=== PATIENT | female | born 1955 | race Caucasian/White ===

== ENCOUNTER 2023-04-13 10:18 | Emergency (ER) | payer MEDICARE, BC ==
[2023-04-13 10:42] LABS: BASOPHILS # (AUTO) 0.1 10^3/uL (0.0-0.1); BASOPHILS % (AUTO) 0.6 %; EOSINOPHILS # (AUTO) 0.1 10^3/uL (0.0-0.7); EOSINOPHILS % (AUTO) 1.1 %; HCT - HEMATOCRIT 45.5 % (37.0-47.0); HGB - HEMOGLOBIN 14.8 g/dL (12.0-16.0); LYMPHOCYTES # (AUTO) 1.1 10^3/uL (1.5-3.5); LYMPHOCYTES % (AUTO) 13.7 %; MEAN CORPUSCULAR HEMOGLOBIN 31.9 pg (27.0-31.0); MEAN CORPUSCULAR HGB CONC 32.5 g/dL (32.0-36.0); MEAN CORPUSCULAR VOLUME 98.1 fL (81.0-99.0); MEAN PLATELET VOLUME 10.7 fL (7.9-10.8); MONOCYTES # (AUTO) 0.4 10^3/uL (0.0-1.0); MONOCYTES % (AUTO) 4.8 %; NEUTROPHILS # (AUTO) 6.3 10^3/uL (1.5-6.6); NEUTROPHILS % (AUTO) 79.4 %; PLT - PLATELET COUNT 185 10^3/uL (130-450); RED BLOOD COUNT 4.64 10^6/uL (4.20-5.40); RED CELL DISTRIBUTION WIDTH 12.9 % (12.0-15.0); WHITE BLOOD COUNT 7.9 x10^3/uL (4.8-10.8)
--- NOTE | 2023-04-13 10:42 | ED Physician Documentation ---
PD HPI CHEST PAIN - Stated complaint Stated Complaint: SOA/CP/ARM PX - Chief complaint Chief Complaint: Cardiac - History obtained from History obtained from: Patient - Additional information Additional information: The patient comes to the emergency department with chief complaint of chest pain and shortness of breath. She states she has been having increasing shortness of breath over the last several days including dyspnea on exertion. She states that in between, the shortness of breath would subside but then come back again. She has a history of CHF and also felt as though she was having some shortness of breath when laying down at night. The patient states that she went for a walk this morning and just after finishing the walk, noticed not only shortness of breath but chest pain. She also states that she "just felt out of it". The patient became concerned enough that she and her decided to come in here. Patient states she still having some substernal chest pain that also is radiating to her left arm. Patient denies any diaphoresis, nausea, or syncope. She has no history of IL but has had a stroke in the past. No rhythm abnormalities that she knows of. PD PAST MEDICAL HISTORY - Allergies Allergies/Adverse Reactions: Allergies Allergy/AdvReac Type Severity Reaction Status Date / Time No Known Drug Allergies Allergy Verified 04/13/23 10:22 PD ED PE NORMAL - Vitals Vital signs reviewed: Yes - General General: Alert and oriented X 3, No acute distress, Well developed/nourished, Other (The patient appears slightly anxious but otherwise in no apparent distress.) - HEENT HEENT: Atraumatic, PERRL, EOMI, Moist mucous membranes - Neck Neck: Supple, no meningeal sign - Cardiac Cardiac: No murmur, Strong equal pulses, Other (Irregular rate and rhythm, mild tachycardia) - Respiratory Respiratory: No respiratory distress, Clear bilaterally - Abdomen Abdomen: Soft, Non tender, Non distended - Derm Derm: Normal color, Warm and dry, No rash - Extremities Extremities: No deformity, No edema - Neuro Neuro: Alert and oriented X 3, Other (Grossly intact) - Psych Psych: Normal mood, Normal affect Results - Vitals Vitals: Oxygen O2 Source Room air - EKG (time done) 1027 EKG releavant findings:: EKG personally interpreted by author of this note. Relevant findings are: Rate: Rate (enter#) (94) Rhythm: NSR, Other (PACs) [place]: Normal Intervals: Normal OK QRS: LVH Ischemia: ST elevation c/w ischemia (Anterior leads V2 through V4), T wave inversion (Lateral leads V5 and V6, as well as aVL ) - Labs Labs: Laboratory Tests 04/13/23 04/13/23 10:32 10:32 WBC 7.9 RBC 4.64 Hgb 14.8 Hct 45.5 MCV 98.1 MCH 31.9 H MCHC 32.5 RDW 12.9 Plt Count 185 MPV 10.7 Neut # (Auto) 6.3 Lymph # (Auto) 1.1 L [place] # (Auto) 0.4 Eos # (Auto) 0.1 Baso # (Auto) 0.1 Absolute Nucleated RBC 0.00 Nucleated RBC % 0.0 Sodium 141 Potassium 4.0 Chloride 105 Carbon Dioxide 30 Anion Gap 6.0 BUN 23 H Creatinine 0.9 Estimated GFR (MDRD) 62 L Glucose 116 H Calcium 9.0 Total Bilirubin 1.1 H AST 105 H ALT 269 H Alkaline Phosphatase 150 H Troponin I High Sens 66.0 H* Total Protein 6.2 L Albumin 4.0 Globulin 2.2 Albumin/Globulin Ratio 1.8 Lipase 32 PD Medical Decision Making - ED course Complexity details: reviewed results, re-evaluated patient, considered differential, d/w patient, d/w family, d/w wardrobe consultant ED course: The patient was evaluated immediately upon arrival by myself after EKG showed ST elevations in the anterior leads. The patient was given aspirin, Lopressor, heparin, and nitroglycerin. I spoke with Dr. Cody of the [facility] emergency department for STEMI transfer and he did agree to accept the patient in transfer. The patient was advised of the findings on EKG and the need for emergent transfer to [facility]. Her was also present for this discussion and they are in agreement. After pt's departure, her troponin was found to be 66. - Critical Care Time(min): 30 Comments: Critical care time was necessary, due to high probability of imminent and life- threatening decline, secondary to acute ST elevation [place]. Time Includes: Direct patient care, Review records, Reassess patient, Document care, Coordinate care, Medical consult, Family consult for tx dec, See progress note Data interpretation: Labs, Pulse ox, Cardiac output, See progress note Departure - Departure Disposition: Transfer Acute Care Hosp Clinical Impression: STEMI (ST elevation myocardial infarction) Qualifiers: Involved coronary artery: unspecified coronary artery Qualified Code(s): I21.3 - ST elevation (STEMI) myocardial infarction of unspecified site Condition: Critical Forms: PCP List Discharge Date/Time: 04/13/23 11:18
[2023-04-13] MEDS: HEPARIN 25000UNITS/500ML (D5W) 25,000 UNIT/500 ML BAG IV SCH (10:57)
[2023-04-13] MEDS: METOPROLOL 5 MG/5 ML VIAL IVP STA (10:59)
[2023-04-13] MEDS: NITROGLYCERIN SL 0.4 MG TABLET SL STA (10:59)
[2023-04-13] MEDS: ASPIRIN CHEW 81 MG TABLET PO STA (11:00)
[2023-04-13 11:07] LABS: ALBUMIN/GLOBULIN RATIO 1.8 (1.0-2.2); BILIRUBIN,TOTAL 1.1 mg/dL (0.2-1.0); CREATININE 0.9 mg/dL (0.6-1.3); TOTAL PROTEIN 6.2 g/dL (6.4-8.9)
--- NOTE | 2023-04-13 11:11 | XRAY Report ---
PROCEDURE: Chest 1 View X-Ray INDICATIONS: Chest Pain TECHNIQUE: One view of the chest was acquired. COMPARISON: None. FINDINGS: Surgical changes and devices: None. Lungs and pleura: Bibasilar opacities. Blunting of left costophrenic angle. Prominent interstitial m arkings. Mediastinum: Mediastinal contours appear normal. Heart size is normal. Bones and chest wall: No suspicious bony lesions. Overlying soft tissues appear unremarkable. IMPRESSION: Bibasilar opacities and blunting of left costophrenic angle which may represent atelectasis, consolid ation or small left effusion. Prominent interstitial markings may represent pulmonary edema, recommen d correlation with volume status. Reviewed by: Ayad Madrigal MD on 04/13/2023 11:10 AM PDT Approved by: Ayad Madrigal MD on 04/13/2023 11:10 AM PDT Station ID: [id number]
[2023-04-13 11:14] VITALS: BP 163/118; O2SAT 94
== END 2023-04-13 11:18 | disposition short-term general hospital (02) ==
LOC: ED 10:18
DX: I21.3 ST elevation (STEMI) myocardial infarction of unspecified site (principal); I50.9 Heart failure, unspecified; Z86.73 Personal history of transient ischemic attack (TIA), and cerebral infarction without residual deficits
CPT/HCPCS: 36415; 80053; 83690; 84484; 85025; 93005; 96374; 99284

== ENCOUNTER 2023-04-13 11:17 | Outpatient (CLI) | payer MEDICARE, BC | END 2023-04-13 23:59 | disposition short-term general hospital (02) | LOC: EMS 11:17 | PROVIDERS: ATTEND Emergency Medicine | DX: I21.3 ST elevation (STEMI) myocardial infarction of unspecified site (principal) | CPT/HCPCS: A0425; A0426 ==

== ENCOUNTER 2023-04-22 21:38 | Outpatient (CLI) | payer MEDICARE, BC | END 2023-04-22 23:59 | disposition critical access hospital (66) | LOC: EMS 21:38 | DX: R53.1 Weakness (principal); R29.810 Facial weakness; R41.82 Altered mental status, unspecified; I10 Essential (primary) hypertension | CPT/HCPCS: A0425; A0429 ==

== ENCOUNTER 2023-04-22 21:48 | Emergency (ER) | payer MEDICARE, BC ==
--- NOTE | 2023-04-22 22:08 | ED Physician Documentation ---
History of Present Illness - Stated complaint Stated Complaint: CODE STROKE - History obtained from History obtained from: EMS - Additonal information Additional information: 67yF with recent transfer last week with concern for STEMI, found to have severe hypertension and new onset CHF but with clean heart cath, presents today with sudden onset R hemiparesis, aphasia, and R facial droop this evening. history limited by patient acuity PD PAST MEDICAL HISTORY - Present Medications Home Medications: Ambulatory Orders Medication Instructions Recorded Confirmed Aspirin Chewable [[facility] [place] 81 mg PO DAILY 04/22/23 04/22/23 Aspirin] Atorvastatin Calcium 40 mg PO DAILY PM 04/22/23 04/22/23 Furosemide [Lasix] 20 mg PO DAILY 04/22/23 04/22/23 Losartan [Cozaar] 50 mg PO DAILY 04/22/23 04/22/23 Spironolactone [Aldactone] 25 mg PO DAILY 04/22/23 04/22/23 carvediloL [Coreg] 12.5 mg PO BID 04/22/23 04/22/23 - Allergies Allergies/Adverse Reactions: Allergies Allergy/AdvReac Type Severity Reaction Status Date / Time No Known Drug Allergies Allergy Verified 04/22/23 22:19 PD ED PE NORMAL - Vitals Vital signs reviewed: Yes - General General: Other (eye opening spontaneously, aphasic) - HEENT HEENT: Atraumatic, Moist mucous membranes, Pharynx benign, Other (L gaze deviation) - Neck Neck: Supple, no meningeal sign - Cardiac Cardiac: RRR - Respiratory Respiratory: No respiratory distress, Clear bilaterally - Abdomen Abdomen: Non tender, Non distended - Derm Derm: Normal color, Warm and dry - Neuro Neuro: Other (NIHSS on arrival - 26 (see MDM)) Results - Vitals Vitals: Vital Signs - 24 hr 04/22/23 04/22/23 04/22/23 22:12 22:15 22:22 Temperature 36.4 C L Heart Rate 107 H 97 103 H Respiratory 19 16 21 Rate Blood Pressure 173/121 H 173/121 H 176/130 H O2 Saturation 97 95 98 04/22/23 04/22/23 04/22/23 22:26 22:30 22:35 Temperature Heart Rate 101 H 94 91 Respiratory 22 20 20 Rate Blood Pressure 186/124 H 166/125 H 175/117 H O2 Saturation 93 94 94 04/22/23 04/22/2304/22/23 22:40 22:48 22:50 Temperature Heart Rate 77 86 89 Respiratory 21 19 20 Rate Blood Pressure 181/111 H 171/122 H 171/115 H O2 Saturation 95 95 94 04/22/23 04/22/23 04/22/23 22:57 23:00 23:05 Temperature Heart Rate 92 73 Respiratory 19 19 Rate Blood Pressure 176/120 H 175/113 H 161/110 H O2 Saturation 95 95 04/22/23 04/22/23 04/22/23 23:10 23:15 23:25 Temperature Heart Rate 74 79 78 Respiratory 19 20 97 H Rate Blood Pressure 161/103 H 159/94 H 163/107 H O2 Saturation 96 98 95 04/22/23 04/22/23 04/22/23 23:30 23:35 23:40 Temperature Heart Rate 87 91 78 Respiratory 21 16 22 Rate Blood Pressure 171/111 H 171/96 H 149/98 H O2 Saturation 97 97 96 04/22/23 04/22/23 04/23/23 23:45 23:50 00:00 Temperature Heart Rate 75 72 Respiratory 13 12 Rate Blood Pressure 141/94 H 148/94 H 132/86 H O2 Saturation 95 96 04/23/23 00:05 Temperature Heart Rate 83 Respiratory 21 Rate Blood Pressure 133/87 H O2 Saturation 98 Oxygen O2 Source Room air - EKG (time done) 2212 EKG releavant findings:: EKG personally interpreted by author of this note. Relevant findings are: Rate: Rate (enter#) Rhythm: Sinus tachycardia - Labs Labs: Laboratory Tests 04/22/23 04/22/23 04/22/23 22:12 22:17 22:20 WBC 5.5 RBC 4.20 Hgb 13.5 Hct 41.0 MCV 97.6 MCH 32.1 H MCHC 32.9 RDW 12.6 Plt Count 202 MPV 10.2 Neut # (Auto) 3.3 Lymph # (Auto) 1.5 [place] # (Auto) 0.4 Eos # (Auto) 0.3 Baso # (Auto) 0.0 Absolute Nucleated RBC 0.00 Nucleated RBC % 0.0 Sodium Potassium Chloride Carbon Dioxide Anion Gap BUN Creatinine Estimated GFR (MDRD) Glucose POC Whole Bld Glucose 102 H Calcium Total Bilirubin AST ALT Alkaline Phosphatase Total Protein Albumin Globulin Albumin/Globulin Ratio Lipase Urine Color YELLOW Urine Clarity CLEAR Urine pH 7.0 Ur Specific [place] 1.010 Urine Protein NEGATIVE Urine Glucose (UA) NEGATIVE Urine Ketones NEGATIVE Urine Occult Blood NEGATIVE Urine Nitrite NEGATIVE Urine Bilirubin NEGATIVE Urine Urobilinogen 0.2 (NORMAL) Ur Leukocyte Esterase NEGATIVE Ur Microscopic Review NOT INDICATED Urine Culture Comments NOT INDICATED 04/22/23 22:40 WBC RBC Hgb Hct MCV MCH MCHC RDW Plt Count MPV Neut # (Auto) Lymph # (Auto) [place] # (Auto) Eos # (Auto) Baso # (Auto) Absolute Nucleated RBC Nucleated RBC % Sodium 135 Potassium 3.7 Chloride 102 Carbon Dioxide 24 Anion Gap 9.0 BUN 26 H Creatinine 0.8 Estimated GFR (MDRD) 72 L Glucose 139 H POC Whole Bld Glucose Calcium 9.2 Total Bilirubin 0.8 AST 17 ALT 30 Alkaline Phosphatase 101 Total Protein 6.3 L Albumin 4.0 Globulin 2.3 Albumin/Globulin Ratio 1.7 Lipase 42 Urine Color Urine Clarity Urine pH Ur Specific [place] Urine Protein Urine Glucose (UA) Urine Ketones Urine Occult Blood Urine Nitrite Urine Bilirubin Urine Urobilinogen Ur Leukocyte Esterase Ur Microscopic Review Urine Culture Comments PD Medical Decision Making - ED course ED course: Patient Is a 67-year-old woman with history of TIA, high blood pressure and possible prior CVA with no baseline deficit who presented with sudden onset right-sided hemiparesis and inability to speak at 8:50 PM. This was her last seen normal time as well as time of onset is witnessed by partner per EMS. Partner clarified that LSN was 8:30pm and he found her debilitated at 9:10pm. Patient was briefly assessed by myself prior to going to CT and found to have significant right hemiparesis, inability to speak, and apparently unable to follow commands. She also appears to have left gaze palsy. Estimated NIHSS on arrival - 27 1 a alert keenly responsive 0. 1B aphasic 2. 1C performs 1 task - 1. 2 horizontal extraocular movements with forced gaze palsy - 2 3 visual johansen 1 4 facial palsy 2 5-day left arm motor drift 1 5B right arm motor drift 4 6 a left leg motor drift 1 6B right leg motor drift 4 7 limb ataxia 0 8 sensation 2 9 language/aphasia 3 10 dysarthria 2 11 extinction/inattention 2 10:30am - d/w Dr. Crawford, telestroke - patient is candidate for TNK. goal BP <185/110, plan to give push dose labetalol prn. d/w patient's spouse Markos re: relative contraindications of prior stroke as well as heart catheterization with femoral artery cath site. given patient's severe debilitation he signed consent and provided Dr. Crawford with verbal consent for TNK understanding risk of bleeding. 10:53pm - Patient has had persistently high diastolic blood pressures, delaying TNK administration. 2 doses IV labetalol have been administered, now will try hydralazine followed by labetalol drip. Patient was able to receive TNK and accepted in transfer to [facility]. - Critical Care Time(min): 60 Time Includes: Direct patient care, Review records, Reassess patient, Document care, Coordinate care, Medical consult Data interpretation: Labs Departure - Departure Disposition: 02 Transfer Acute Care Hosp Clinical Impression: Cerebrovascular accident (CVA) Condition: Critical Forms: PCP List Discharge Date/Time: 04/23/23 00:15
--- NOTE | 2023-04-22 22:14 | CT Report ---
PROCEDURE: Head W/O Stroke Protocol INDICATIONS: r/o cva TECHNIQUE: Noncontrast 4.5 mm thick angled axial sections acquired from the foramen magnum to the vertex, with c oronal reformats. For radiation dose reduction, the following was used: automated exposure control, adjustment of mA and/or kV according to patient size. COMPARISON: None. FINDINGS: Image quality: Excellent. CSF spaces: Basal cisterns are patent. No extra-axial fluid collections. Ventricles are normal in size and shape. Brain: No midline shift. No intracranial masses or hemorrhage. [place]-white matter interface is norm al. Skull and face: Calvarium and visualized facial bones are intact, without suspicious lesions. Sinuses: Visualized sinuses and mastoids are clear. IMPRESSION: No CT evidence of acute intracranial abnormalities. No contraindication for IV TPA therapy. Age-related volume loss and moderate white matter chronic small vessel ischemic changes. This study fulfills neurological imaging criteria for inclusion or exclusion of acute stroke therapie s based on available published neurological imaging guidelines. Reviewed by: Darien Vargas MD on 04/22/2023 10:13 PM PDT Approved by: Darien Vargas MD on 04/22/2023 10:13 PM PDT Station ID: [id number]
[2023-04-22] MEDS ORDERED: LABETALOL 20 MG/4 ML SYRINGE IVP STA ×2 (22:16→22:36)
--- NOTE | 2023-04-22 22:26 | CT Report ---
PROCEDURE: CT Angio Head/Neck INDICATIONS: r/o cva TECHNIQUE: After the administration of intravenous contrast, 1 mm thick sections acquired from the aortic arch t hrough the [place] of [place]. 3-dimensional gmccraz-hvswzwowa-lzmdlbmyga (MIP) and/or volume renderin g reformats were acquired of the central intracranial vasculature and neck separately. For radiation dose reduction, the following was used: automated exposure control, adjustment of mA and/or kV acco rding to patient size. COMPARISON: None. FINDINGS: Image quality: Diagnostic. HEAD CT: CSF Spaces: Basal cisterns are patent. No extra-axial fluid collections. Ventricles are normal in size and shape. Brain: The brain is within normal limits for age and scanning technique. No area of abnormal intrac ranial enhancement is seen. Skull and face: Calvarium and visualized facial bones appear intact, without suspicious lesions. Sinuses: Visualized sinuses and mastoids are clear. HEAD CT ANGIOGRAPHY: Anterior circulation: Intracranial internal carotid arteries are normal in size and flow. The flow within the paired anterior cerebral arteries is normal and symmetric. The flow within the middle cer ebral arteries is normal and symmetric. The anterior communicating artery is seen. No aneurysms are seen. Posterior circulation: Visualized portions of the vertebral arteries demonstrate normal caliber, and join to form a normal appearing basilar artery. Flow within the posterior cerebral arteries is norm al and symmetric. No aneurysms are seen. NECK CT ANGIOGRAPHY: Carotid system: The great vessels demonstrate a conventional anatomy as they arise from the aortic a rch. The origins of the common carotid arteries appear patent. The common carotid arteries demonstr ate normal caliber and courses. The bifurcation regions are both widely patent. The internal caroti d arteries demonstrate normal calibers and courses. Posterior circulation: The origins of the vertebral arteries both appear widely patent. The more moss perior extracranial portions of both vertebral arteries also demonstrate normal courses and calibers. They join to form a normal appearing basilar artery. Soft tissues: Visualized neck soft tissues demonstrate no suspicious abnormalities. Bones: No suspicious bony lesions. Visualized cervical spine appears normally aligned. IMPRESSION: 1. No CT evidence of acute intracranial abnormalities. No area of abnormal intracranial contrast enha ncement. 2. No hemodynamically significant stenosis or aneurysm is seen in intracranial circulation. 3. No hemodynamically significant stenosis or aneurysm is seen in bilateral neck arteries. The estimate of stenosis included in the report of the imaging study was calculated using the NASCET method Reviewed by: Darien Foster MD on 04/22/2023 10:25 PM PDT Approved by: Darien Foster MD on 04/22/2023 10:25 PM PDT Station ID: [id number]
[2023-04-22] MEDS ORDERED: TENECTEPLASE 50 MG/10 ML VIAL IVP STA (22:29)
[2023-04-22 22:31] LABS: BASOPHILS % (AUTO) 0.7 %; EOSINOPHILS # (AUTO) 0.3 10^3/uL (0.0-0.7); EOSINOPHILS % (AUTO) 5.4 %; HGB - HEMOGLOBIN 13.5 g/dL (12.0-16.0); LYMPHOCYTES # (AUTO) 1.5 10^3/uL (1.5-3.5); LYMPHOCYTES % (AUTO) 26.4 %; MEAN CORPUSCULAR HEMOGLOBIN 32.1 pg (27.0-31.0); MEAN CORPUSCULAR HGB CONC 32.9 g/dL (32.0-36.0); MEAN CORPUSCULAR VOLUME 97.6 fL (81.0-99.0); MEAN PLATELET VOLUME 10.2 fL (7.9-10.8); MONOCYTES # (AUTO) 0.4 10^3/uL (0.0-1.0); MONOCYTES % (AUTO) 7.4 %; NEUTROPHILS # (AUTO) 3.3 10^3/uL (1.5-6.6); NEUTROPHILS % (AUTO) 59.9 %; PLT - PLATELET COUNT 202 10^3/uL (130-450); RED CELL DISTRIBUTION WIDTH 12.6 % (12.0-15.0); WHITE BLOOD COUNT 5.5 x10^3/uL (4.8-10.8)
[2023-04-22 22:32] LABS: BILIRUBIN,URINE NEGATIVE (NEGATIVE); CLARITY,URINE CLEAR (CLEAR); GLUCOSE, URINE (UA) NEGATIVE (NEGATIVE); KETONES,URINE (UA) NEGATIVE (NEGATIVE); LEUKOCYTE ESTERASE, URINE NEGATIVE (NEGATIVE); NITRITE,URINE NEGATIVE (NEGATIVE); OCCULT BLOOD,URINE NEGATIVE (NEGATIVE); PROTEIN,URINE NEGATIVE (NEGATIVE); UROBILINOGEN,URINE 0.2 (NORMAL) E.U./dL (NORMAL)
[2023-04-22] MEDS ORDERED: LABETALOL 20 MG/4 ML SYRINGE IVP ONE (22:45)
[2023-04-22] MEDS ORDERED: hydrALAZINE INJ 20 MG/ML VIAL IVP STA (22:52)
[2023-04-22] MEDS ORDERED: LABETALOL VIAL 200 MG in SODIUM CHLORIDE 0.9% 160 ML IV STA (22:52)
[2023-04-22 23:01] LABS: ALBUMIN/GLOBULIN RATIO 1.7 (1.0-2.2); BILIRUBIN,TOTAL 0.8 mg/dL (0.2-1.0); CALCIUM 9.2 mg/dL (8.5-10.3); CREATININE 0.8 mg/dL (0.6-1.3); POTASSIUM 3.7 mmol/L (3.5-4.5); TOTAL PROTEIN 6.3 g/dL (6.4-8.9)
[2023-04-22] MEDS ORDERED: LABETALOL 5 MG/1 ML 20 ML MDV ONE (23:09)
[2023-04-23 00:08] VITALS: BP 133/87; O2SAT 98
[2023-04-23] MEDS ORDERED: iohexoL-300 100 ML VIAL IVP ONE (01:44)
== END 2023-04-23 00:15 | disposition short-term general hospital (02) ==
LOC: EDUNIT# → ED 21:48
DX: I63.9 Cerebral infarction, unspecified (principal); I10 Essential (primary) hypertension; R29.726 NIHSS score 26
CPT/HCPCS: 36415; 37195; 51702; 70450; 70496; 70498; 80053; 81003; 83690; 85025; 93005; 96374; 96375; 99291; J3101; Q9967; 81001; 87086

== ENCOUNTER 2023-06-09 10:42 | Outpatient (CLI) | payer MEDICARE, BC ==
[2023-06-09 11:04] LABS: BASOPHILS % (AUTO) 0.7 %; EOSINOPHILS # (AUTO) 0.3 10^3/uL (0.0-0.7); EOSINOPHILS % (AUTO) 4.6 %; HCT - HEMATOCRIT 36.5 % (37.0-47.0); HGB - HEMOGLOBIN 12.3 g/dL (12.0-16.0); LYMPHOCYTES # (AUTO) 1.2 10^3/uL (1.5-3.5); LYMPHOCYTES % (AUTO) 20.8 %; MEAN CORPUSCULAR HEMOGLOBIN 32.7 pg (27.0-31.0); MEAN CORPUSCULAR HGB CONC 33.7 g/dL (32.0-36.0); MEAN CORPUSCULAR VOLUME 97.1 fL (81.0-99.0); MEAN PLATELET VOLUME 10.4 fL (7.9-10.8); MONOCYTES # (AUTO) 0.4 10^3/uL (0.0-1.0); MONOCYTES % (AUTO) 7.1 %; NEUTROPHILS # (AUTO) 3.8 10^3/uL (1.5-6.6); NEUTROPHILS % (AUTO) 66.4 %; PLT - PLATELET COUNT 195 10^3/uL (130-450); RED BLOOD COUNT 3.76 10^6/uL (4.20-5.40); RED CELL DISTRIBUTION WIDTH 13.2 % (12.0-15.0); WHITE BLOOD COUNT 5.7 x10^3/uL (4.8-10.8)
[2023-06-09 11:16] LABS: ALBUMIN 4.2 g/dL (3.2-5.5); ALBUMIN/GLOBULIN RATIO 1.8 (1.0-2.2); BILIRUBIN,TOTAL 1.2 mg/dL (0.2-1.0); CALCIUM 9.8 mg/dL (8.5-10.3); CREATININE 0.9 mg/dL (0.6-1.3); POTASSIUM 4.3 mmol/L (3.5-4.5); TOTAL PROTEIN 6.6 g/dL (6.4-8.9)
== END 2023-06-09 10:43 | disposition home or self-care (01) ==
LOC: LAB 10:42
PROVIDERS: ATTEND Physician Assistant
DX: I50.22 Chronic systolic (congestive) heart failure (principal); Z79.01 Long term (current) use of anticoagulants
CPT/HCPCS: 36415; 80053; 85025

== ENCOUNTER 2023-08-03 08:27 | Outpatient (CLI) | payer MEDICARE, BC ==
[2023-08-03 08:49] LABS: BASOPHILS % (AUTO) 0.6 %; EOSINOPHILS # (AUTO) 0.3 10^3/uL (0.0-0.7); EOSINOPHILS % (AUTO) 6.6 %; HCT - HEMATOCRIT 36.7 % (37.0-47.0); HGB - HEMOGLOBIN 12.2 g/dL (12.0-16.0); LYMPHOCYTES # (AUTO) 0.9 10^3/uL (1.5-3.5); LYMPHOCYTES % (AUTO) 19.5 %; MEAN CORPUSCULAR HEMOGLOBIN 32.5 pg (27.0-31.0); MEAN CORPUSCULAR HGB CONC 33.2 g/dL (32.0-36.0); MEAN CORPUSCULAR VOLUME 97.9 fL (81.0-99.0); MEAN PLATELET VOLUME 9.6 fL (7.9-10.8); MONOCYTES # (AUTO) 0.3 10^3/uL (0.0-1.0); MONOCYTES % (AUTO) 7.3 %; NEUTROPHILS # (AUTO) 3.1 10^3/uL (1.5-6.6); NEUTROPHILS % (AUTO) 65.8 %; PLT - PLATELET COUNT 154 10^3/uL (130-450); RED BLOOD COUNT 3.75 10^6/uL (4.20-5.40); RED CELL DISTRIBUTION WIDTH 12.7 % (12.0-15.0); WHITE BLOOD COUNT 4.7 x10^3/uL (4.8-10.8)
[2023-08-03 09:02] LABS: CALCIUM 9.4 mg/dL (8.5-10.3); POTASSIUM 4.2 mmol/L (3.5-4.5)
[2023-08-04 05:12] LABS: HCV AB Non Reactive (Non Reactive); HIV SCREEN 4TH GENERATION Non Reactive (Non Reactive)
[2023-08-04 07:10] LABS: HBsAG SCREEN Negative (Negative); HEPATITIS B SURFACE AB QUAL Non Reactive (.)
== END 2023-08-03 08:28 | disposition home or self-care (01) ==
LOC: LAB 08:27
PROVIDERS: ATTEND Internal Medicine Cardiovascular Disease
DX: I63.412 Cerebral infarction due to embolism of left middle cerebral artery (principal); Z11.4 Encounter for screening for human immunodeficiency virus [HIV]; Z11.59 Encounter for screening for other viral diseases
CPT/HCPCS: 36415; 80048; 85025; 86704; 86706; 86803; 87340; G0475; 87389